=== PATIENT | female | born 1940 | race Caucasian/White ===

== ENCOUNTER 2021-02-06 16:27 | Emergency (ER) | payer MEDICARE, SELFPAY ==
--- NOTE | ~2021-02-06 | XR_ITS ---
XR knee RT min 4V DATE: 02/06/2021 17:09 INDICATION: Medial right knee pain following fall yesterday. TECHNIQUE: 4 views COMPARISON: None FINDINGS: There is probable mild suprapatellar joint effusion. There is anterior soft tissue swelling. Extensive subcutaneous edema is likely. Femoral and popliteal artery calcifications.. There is prominent chondrocalcinosis. Mild tricompartment osteoarthritis. Superior and lower pole patellar enthesopathy at quadriceps and patellar tendon insertion sites. No fracture or dislocation, periosteal reaction or bone destruction. IMPRESSION: Prominent chondrocalcinosis Small joint effusion Soft tissue swelling, subcutaneous edema Tricompartment osteoarthritis Reviewed, dictated and finalized at location A.
[2021-02-06 16:49] VITALS: BP 142/71; PULSE 90; RESP 16; TEMP 35.9; O2SAT 99
--- NOTE | 2021-02-06 17:47 | ED.EXTPRO ---
HPI - Extremity Problem General Chief complaint: Extremity Problem,Nontraumatic Stated complaint: right knee pain Time Seen by Provider: 02/06/21 17:47 Source: patient Mode of arrival: ambulatory Limitations: no limitations History of Present Illness HPI Narrative: Anju Arce is a 80 yo female with a PMH of GERD, idiopathic liver cirrhosis, lung cancer, diabetes, HTN, who fell yesterday in her bedroom [place] posterior bed on her way to [facility] Patient has ecchymosis on the medial side of right knee and mild swelling on the lateral lower leg Related Data Allergies Allergy/AdvReac Type Severity Reaction Status Date / Time No Known Allergies Allergy Unverified 04/15/13 17:09 Review of Systems Review of Systems: Narrative: CONSTITUTIONAL: Denies fever, chills, sweats. EYES: Denies visual changes, redness, discharge. ENT: Denies rhinorrhea, congestion, sore throat, otalgia. CARDIOVASCULAR: Denies chest pain, palpitations, edema. RESPIRATORY: Denies dyspnea, wheezing, cough GASTROINTESTINAL: Denies abdominal pain, nausea, vomiting, diarrhea. GENITOURINARY: Denies dysuria, hematuria, abnormal discharge SKIN: Denies rash or itching. NEUROLOGIC: Denies numbness, or focal weakness. PSYCHIATRIC: Denies anxiety or depression. Right knee medial ecchymosis and mild swelling on the lateral lower leg PMFSH Past Medical History Medical History Cirrhosis Diabetes GERD (gastroesophageal reflux disease) Hypertension Lung cancer Family History Family History Other Hypertension Social History Social History (Updated 02/06/21 @ 17:54 by Kelly Nuno CNP) Smoking status: Former smoker Comments At time of signature, I agree with nursing past medical, surgical, social and family history. There is no relevant family history pertinent to the presenting complaint. Exam Narrative: Exam Narrative: GENERAL: This is a well-nourished, well-developed patient, in mild distress. HEAD: normocephalic, atraumatic. EYES: Sclera clear/white. Vision is grossly intact. EARS: External ears normal, . Hearing grossly intact. NOSE: External nose normal without nasal discharge, nares without redness, no rhinorrhea. THROAT: Mucous membranes moist, NECK: Neck supple, non-tender CARDIOVASCULAR: Regular rate and rhythm without murmurs, gallops, or rubs. RESPIRATORY: Clear to auscultation. Breath sounds equal bilaterally. No wheezes, rales, or rhonchi. GASTROINTESTINAL: Abdomen soft, SKIN: warm, intact with no suspicious lesions or rash, good texture and turgor. Left swollen knee with ecchymosis and medial ecchymosis left knee and anterior lateral swelling, has full range of motion flexion, almost full extension NEURO: awake, alert, and oriented to person, place and time. There were no obvious focal neurologic abnormalities. Steady gait EXTREMITIES: Normal range of motion on right. BACK: Nontender without deformity Course Course Emergency Course: Patient comes to [facility] for an x-ray of her right knee after fall yesterday. Bruising on medial side of the knee, swelling lateral right X-ray of right knee: Small joint effusion, soft tissue swelling with subcutaneous edema, tricompartment osteoarthritis Directions given for [facility] Vital Signs Vital signs: Vital Signs Temperature 96.6 F L 02/06/21 16:49 Pulse Rate 90 02/06/21 16:49 Respiratory Rate 16 02/06/21 16:49 Blood Pressure 142/71 H 02/06/21 16:49 Pulse Oximetry 99 02/06/21 16:49 Temperature 96.6 F L 02/06/21 16:49 Pulse Rate 90 02/06/21 16:49 Respiratory Rate 16 02/06/21 16:49 Blood Pressure 142/71 H 02/06/21 16:49 Pulse Oximetry 99 02/06/21 16:49 MDM - Extremity (Nontraumatic) Differential Diagnosis Differential diagnosis: Likely cellulitis, superficial thrombophlebitis, lower extremity edema and other (Ecchymosis)
== END 2021-02-06 18:22 | disposition home or self-care (01) ==
PROVIDERS: Emergency Provider Nurse Practitioner; PCP Family Medicine
DX: S80.01XA Contusion of right knee, initial encounter (principal); W19.XXXA Unspecified fall, initial encounter; K21.9 Gastro-esophageal reflux disease without esophagitis; K74.60 Unspecified cirrhosis of liver; E11.9 Type 2 diabetes mellitus without complications; I10 Essential (primary) hypertension; Z85.118 Personal history of other malignant neoplasm of bronchus and lung
CPT/HCPCS: 73564; 99213; G0463

== ENCOUNTER 2024-07-22 15:50 | Emergency (ER) | payer MEDICARE, SELFPAY ==
[2024-07-22 16:08] VITALS: BP 140/84; PULSE 92; RESP 16; TEMP 36.3; O2SAT 97
[2024-07-22 16:30] LABS: EDUAAPPEAR Clear; EDUABILI Negative (Negative); EDUABLOOD Negative (Negative); EDUACOLOR1 Yellow; EDUAGLUCOSE Negative (Negative); EDUAKETONE Negative (Negative); EDUALEUKO Trace (Negative); EDUANITRATE Negative (Negative); EDUAPROTEIN 2+ (Negative); EDUAUROBILI 0.2
--- NOTE | 2024-07-22 17:03 | ED_ITS ---
HPI - Female Genitourinary General Chief complaint: Urogenital-Female Stated complaint: Urinary Problems Time Seen by Provider: 07/22/24 17:03 Source: patient, RN notes reviewed and old records reviewed Mode of arrival: ambulatory Limitations: no limitations History of Present Illness HPI Narrative: Patient presents accompanied by her daughter. Patient is complaining of lack of energy, difficulty with urination, back pain. She reports these are typical UTI symptoms for her. She does not like water, therefore does not drink much the. She denies any fever, chills, sweats. She denies any change in appetite. Denies any injury or trauma. Voices no other concerns or complaints at this time Related Data Home Medications Medication Instructions Recorded Confirmed amitriptyline 50 mg tablet 50 mg PO DAILY 07/22/24 07/22/24 amlodipine 5 mg tablet 5 mg PO DAILY 07/22/24 07/22/24 duloxetine 60 mg capsule,delayed 60 mg PO DAILY 07/22/24 07/22/24 release lisinopril 40 mg tablet 40 mg PO DAILY 07/22/24 07/22/24 metformin 1,000 mg tablet 1,000 mg PO BID 07/22/24 07/22/24 Allergies Allergy/AdvReac Type Severity Reaction Status Date / Time sulfamethoxazole Allergy Intermediate Rash Verified 07/22/24 17:11 [From Bactrim] trimethoprim [From Bactrim] Allergy Intermediate Rash Verified 07/22/24 17:11 Review of Systems Review of Systems: All systems reviewed & are unremarkable except as noted in HPI and below Constitutional: Constitutional: Reports as per HPI, Reports no additional constitutional complaints and Reports lethargy ENT: Reports system reviewed and no additional complaints, except as documented Cardiovascular: Cardiovascular: Reports no additional cardiovascular complaints Respiratory: Respiratory: Reports no additional respiratory complaints Gastrointestinal: Gastrointestinal: Reports no additional gastrointestinal complaints Genitourinary: Genitourinary: Reports no additional female genitourinary complaints and Reports as per HPI Musculoskeletal: Musculoskeletal: Reports back pain PMFSH Past Medical History Medical History Cirrhosis Diabetes GERD (gastroesophageal reflux disease) Hypertension Lung cancer Family History Family History Other Hypertension Social History Social History Smoking status: Former smoker Comments At the time of my signature, I reviewed and agree with the nursing past medical, surgical, social, and family history. There is no relevant family history pertinent to the patient complaint. Exam Const: General: cooperative, no acute distress, alert and awake Orientation/consciousness: oriented to person, oriented to place and oriented to time HENMT: Head: normal to inspection Resp: Effort & Inspection: normal respiratory effort and able to speak in complete sentences Auscultation: clear to auscultation bilaterally, no crackles, no rales, no rhonchi and no wheezes Cardio: Palpation: normal PMI Rate: regular rate Rhythm: regular rhythm Heart sounds: S1 normal heart sound present and S2 normal heart sound present : General: Yes no CVA tenderness Neuro: General: oriented to person, oriented to place and oriented to time Cranial nerves: Yes CN's II-XII intact bilaterally Psych: Appearance: grossly normal Thought process: Normal thought process present Insight: Good insight present (Psych) Judgement: Good judgement present (Psych) Course Course Level of Care: Express Care Visit Vital Signs Vital signs: Vital Signs Temperature 97.3 F L 07/22/24 16:08 Pulse Rate 92 07/22/24 16:08 Respiratory Rate 16 07/22/24 16:08 Blood Pressure 140/84 07/22/24 16:08 Pulse Oximetry 97 07/22/24 16:08 Oxygen Delivery Room Air 07/22/24 16:08 Temperature 97.3 F L 07/22/24 16:08 Pulse Rate 92 07/22/24 16:08 Respiratory Rate 16 07/22/24 16:08 Blood Pressure 140/84 07/22/24 16:08 Pulse Oximetry 97 07/22/24 16:08 Oxygen Delivery Room Air 07/22/24 16:08 Reviewed MDM - Female Genitourinary MDM Narrative Medical decision making narrative: Patient with trace leuko sites, no nitrates. Likely contaminated specimen, but given age and other symptoms will go ahead and treat. Culture sent. Can DC treatment if culture is clean. Follow-up with primary care provider. Discharge instructions reviewed with patient, as well as provided in writing per nursing staff. The instructions also include specific and strict return/GO TO THE ER as well as f/u information. All questions have been answered, and the patient deny any further questions with discharge and discharge plan. Some parts of this dictation were generated by voice recognition software and may contain typographical and/or grammatical inaccuracies. Differential Diagnosis Differential diagnosis: Likely urinary tract infection and cystitis Medical Records Attestation: I reviewed the patient's medical records. Lab Data Attestation: I reviewed the patient's lab results. Labs: Lab Results 07/22/24 Range/Units 16:27 POC Urine Color Yellow POC Urine Clarity Clear POC Urine pH 5.0 POC Ur Specif [place] 1.020 POC Urine Protein 2+ (Negative) POC Ur Glucose (UA) Negative (Negative) POC Urine Ketones Negative (Negative) POC Urine Blood Negative (Negative) POC Urine Nitrite Negative (Negative) POC Urine Bilirubin Negative (Negative) POC Urine Urobilinogen 0.2 POC U Leukocyte Esteras Trace (Negative) Discharge Plan Discharge Clinical Impression: Urinary tract infection Qualifiers: Urinary tract infection type: site unspecified Hematuria presence: without hematuria Qualified Code(s): N39.0 - Urinary tract infection, site not specified Patient Disposition: Home, Self-Care Condition: Stable Instructions: Antibiotic Form, Urinary Tract Infection in Older Adults (ED) Additional Instructions: Take medications as prescribed, plenty of water. Follow-up with primary care provider. Emergency department with new or worse symptoms Patient Language: Hungarian Prescriptions: New nitrofurantoin monohyd/m-cryst [Macrobid] 100 mg capsule 100 mg PO Q12H 5 Days Qty: 10 0RF Rx Instructions: must administer with a meal/food No Action amlodipine 5 mg tablet 5 mg PO DAILY amitriptyline 50 mg tablet 50 mg PO DAILY metformin 1,000 mg tablet 1,000 mg PO BID lisinopril 40 mg tablet 40 mg PO DAILY duloxetine 60 mg capsule,delayed release(DR/EC) 60 mg PO DAILY Follow-up/Referrals: Eber,Gordon Coulter MD [Primary Care Provider] - 1 Week Time of Disposition: 17:13
== END 2024-07-22 17:22 | disposition home or self-care (01) ==
PROVIDERS: Emergency Provider Nurse Practitioner Family; PCP Family Medicine
DX: N39.0 Urinary tract infection, site not specified (principal); K74.60 Unspecified cirrhosis of liver; E11.9 Type 2 diabetes mellitus without complications; Z79.84 Long term (current) use of oral hypoglycemic drugs; I10 Essential (primary) hypertension; K21.9 Gastro-esophageal reflux disease without esophagitis; Z85.118 Personal history of other malignant neoplasm of bronchus and lung; Z87.891 Personal history of nicotine dependence
CPT/HCPCS: 81003; 87086; 99213; G0463